=== PATIENT | male | born 1965 ===

== ENCOUNTER 2017-03-30 07:01 | Day surgery (SDC) | payer OTHER ==
[2017-03-30 07:51] VITALS: BMI 30.5
[2017-03-30] MEDS ORDERED: Propofol 10 mg/ml Inj (20 ML) ONE (08:58)
--- NOTE | 2017-03-30 09:00 | CP.SDSHP ---
Same Day Surgery H & P - History Proposed Procedure: COLONSCOPY Pre-Op Diagnosis: SEE NOTES - Previous Medical/Surgical History Cardiac: Hypertension Pain: 2.Mild Pain - Allergies Allergies: Allergies No Known Allergies Allergy (Verified 03/30/17 07:51) - Physical Exam General Appearance: N Vital Signs: Vital Signs 03/30/17 07:40 Temperature 97 F L Pulse Rate 80 Respiratory 20 Rate Blood Pressure 103/86 O2 Sat by Pulse 97 Oximetry Mental Status: Alert & Oriented x3 Neuro: WNL Heart: Other Lungs: WNL GI: WNL - {Optional Preform as Required} Breast: WNL Abdomen: Other Rectal: WNL Integument: WNL : WNL Ortho: WNL ENT: WNL - Impression Pt. Evaluated Today:Candidate for Anesthesia & Procedure: Yes - Date & Time Time: 09:00 Short Stay Discharge - Short Stay Discharge Admitting Diagnosis/Reason for Visit: ENCOUNTER FOR SCREENING FOR MALIGNANT NEOPLASM OF Disposition: HOME/ ROUTINE
[2017-03-30] MEDS ORDERED: Belladonna-Phenobarbital PO STA (09:01)
[2017-03-30 10:21] VITALS: TEMP 96.7; O2SAT 100
[2017-03-30 10:23] VITALS: RESP 13
[2017-03-30 10:28] VITALS: BP 105/71; PULSE 77
== END 2017-03-30 10:15 | disposition home or self-care (01) ==
LOC: C.ENDO 07:01
PROVIDERS: ATTEND Specialist
DX: Z12.11 Encounter for screening for malignant neoplasm of colon (principal); K57.30 Diverticulosis of large intestine without perforation or abscess without bleeding; K52.9 Noninfective gastroenteritis and colitis, unspecified; K63.89 Other specified diseases of intestine; K64.8 Other hemorrhoids
CPT/HCPCS: 45380; 88305; J2704